=== PATIENT | female | born 1980 | race Caucasian/White ===

== ENCOUNTER 2022-02-11 12:35 | Emergency (ER) | payer OTHER ==
[~2022-02-11] VITALS: Ht 162.6 cm; Wt 76.8 kg
[2022-02-11 12:44] VITALS: TEMP 98.2
[2022-02-11 13:22] LABS: BASO % 0.7 % (0.0-2.0); EOS # 0.1 K/mm3 (0.0-0.7); EOS % 1.6 % (0.0-4.0); GRAN # 3.7 K/mm3 (1.4-6.5); GRAN % 60.8 % (42.2-75.2); HEMATOCRIT 39.8 % (37.0-47.0); HEMOGLOBIN 13.7 g/dl (12.5-16.0); LYMPH # 1.6 K/mm3 (1.2-3.4); LYMPH % 26.2 % (20.0-51.0); MEAN CELL VOLUME 86 fl (80.0-100.0); MEAN CORPUSCULAR HEMOGLOBIN 30 pg (27-31); MEAN CORPUSCULAR HGB CONC 34 g/dl (33.0-37.0); MEAN PLATELET VOLUME 9.8 fl (7.4-10.4); MONO # 0.6 K/mm3 (0.1-0.6); MONO % 10.5 % (1.7-9.3); PLATELET COUNT 224 K/mm3 (130-400); RED BLOOD COUNT 4.63 M/mm3 (4.10-5.30); REDCELL DISTRIBUTION WIDTH-CV 12.5 % (11.5-14.5)
[2022-02-11 13:43] LABS: ALANINE AMINOTRANSFERASE 7 U/L (0-55); ALBUMIN 4.1 gm/dL (3.5-5.0); ALKALINE PHOSPHATASE 32 U/L (40-150); ANION GAP 10 mmol/L (7-16); AST,SGOT 12 U/L (5-34); BILIRUBIN,TOTAL 0.4 mg/dL (0.2-1.2); BLOOD UREA NITROGEN 13 mg/dL (7-19); CALCIUM 9.4 mg/dL (8.4-10.2); CARBON DIOXIDE 19 mmol/L (22-29); CHLORIDE 109 mmol/L (98-107); CREATININE, serum 0.77 mg/dL (0.57-1.11); GLUCOSE 100 mg/dL (70-99); POTASSIUM 4.4 mmol/L (3.5-4.5); SODIUM 138 mmol/L (136-145); TOTAL PROTEIN 7.2 gm/dL (6.2-8.1)
[2022-02-11 13:51] LABS: TROPONIN-I < 0.010 ng/mL (0.00-0.033)
[2022-02-11] MEDS ORDERED: DESYREL 100MG100 MG PO (14:02)
[2022-02-11] MEDS ORDERED: PROZAC40 MG PO (14:02)
[2022-02-11] MEDS ORDERED: PROTONIX 40MG T40 MG PO ×2 (14:47→15:01)
[2022-02-11 14:58] VITALS: BP 106/66; PULSE 65
== END 2022-02-11 15:00 | disposition home or self-care (01) ==
LOC: COL.ER 12:35
PROVIDERS: Personal Emergency Response Attendant
DX: K21.00 Gastro-esophageal reflux disease with esophagitis, without bleeding (principal)
CPT/HCPCS: C9113

== ENCOUNTER 2024-01-29 20:23 | Emergency (ER) | payer OTHER ==
[~2024-01-29] VITALS: Ht 165.1 cm; Wt 77.3 kg
[~2024-01-29 20:23] MED LIST: AMOXICILLIN 8751 TAB PO; CEPHALEXIN500 M1 PO; DESYREL 100MG100 MG PO; LYSTEDA650 MG PO; PROTONIX 40MG T40 MG PO; PROZAC40 MG PO; SPRINTEC 35 MCG1 TAB PO
[2024-01-29 20:44] VITALS: TEMP 97.7
[2024-01-29 21:34] LABS: COLLECTION METHOD CLEAN CATCH
[2024-01-29 21:41] LABS: PH 6.5 (5.0-8.5); URINE APPEARANCE CLEAR (CLEAR/HAZY); URINE BLOOD NEGATIVE (NEGATIVE); URINE COLOR YELLOW (YELLOW); URINE GLUCOSE NEGATIVE (NEGATIVE); URINE KETONE NEGATIVE (NEGATIVE); URINE NITRATE NEGATIVE (NEGATIVE); URINE PROTEIN(semi-quant) NEGATIVE (NEGATIVE); URINE UROBILINOGEN 0.2 E.U/dL (0.2-1.0)
[2024-01-29 21:49] LABS: BASO % 0.6 % (0.0-2.0); EOS # 0.1 K/mm3 (0.0-0.7); EOS % 2.6 % (0.0-4.0); GRAN # 2.9 K/mm3 (1.4-6.5); GRAN % 54.3 % (42.2-75.2); HEMATOCRIT 41.6 % (37.0-47.0); HEMOGLOBIN 13.2 g/dl (12.5-16.0); LYMPH # 1.7 K/mm3 (1.2-3.4); LYMPH % 31.6 % (20.0-51.0); MEAN CELL VOLUME 79 fl (80.0-100.0); MEAN CORPUSCULAR HEMOGLOBIN 25 pg (27-31); MEAN CORPUSCULAR HGB CONC 32 g/dl (33.0-37.0); MEAN PLATELET VOLUME 9.7 fl (7.4-10.4); MONO # 0.6 K/mm3 (0.1-0.6); MONO % 10.7 % (1.7-9.3); PLATELET COUNT 268 K/mm3 (130-400); RED BLOOD COUNT 5.29 M/mm3 (4.10-5.30); REDCELL DISTRIBUTION WIDTH-CV 16.1 % (11.5-14.5)
[2024-01-29] MEDS ORDERED: NS 1,000 ML IV ONE (22:00)
[2024-01-29] MEDS ORDERED: Ketorolac 30 MG/ML VIAL IV ONE (22:00)
[2024-01-29 22:10] LABS: ALBUMIN 4.1 gm/dL (3.5-5.0); BILIRUBIN,TOTAL 0.2 mg/dL (0.2-1.2); CALCIUM 9.8 mg/dL (8.4-10.2); CREATININE, serum 0.76 mg/dL (0.57-1.11); POTASSIUM 3.8 mmol/L (3.5-4.5); TOTAL PROTEIN 7.5 gm/dL (6.2-8.1)
[2024-01-29] MEDS ORDERED: Acetaminophen 500 MG TAB PO ONE (22:45)
[2024-01-29] MEDS ORDERED: Cyclobenzaprine 10 MG TAB PO ONE (22:45)
[2024-01-29] MEDS ORDERED: FLEXERIL 1010 MG/TAB PO (22:56)
[2024-01-29] MEDS ORDERED: NAPROSYN500 MG PO (22:56)
[2024-01-29 23:10] VITALS: BP 111/758; PULSE 53
== END 2024-01-29 23:10 | disposition home or self-care (01) ==
LOC: COL.ER 20:23
PROVIDERS: Nurse Practitioner Primary Care
DX: S39.012A Strain of muscle, fascia and tendon of lower back, initial encounter (principal); S39.011A Strain of muscle, fascia and tendon of abdomen, initial encounter; X50.1XXA Overexertion from prolonged static or awkward postures, initial encounter; Y93.89 Activity, other specified; Y92.009 Unspecified place in unspecified non-institutional (private) residence as the place of occurrence of the external cause
CPT/HCPCS: J1885; J7030